=== PATIENT | male | born 2000 | race Caucasian/White ===

== ENCOUNTER → 2023-06-05 15:02 | Outpatient (BNVA) | payer MEDICAID, SELFPAY | PROVIDERS: PCP Nurse Practitioner Family; Referring Provider Nurse Practitioner Family; Visit Provider Nurse Practitioner Family | DX: L65.9 Nonscarring hair loss, unspecified (principal); L64.8 Other androgenic alopecia | CPT/HCPCS: 99203 ==

== ENCOUNTER → 2023-12-04 15:08 | Outpatient (BNVA) | payer MEDICAID, SELFPAY | PROVIDERS: PCP Nurse Practitioner Family; Visit Provider Nurse Practitioner Family | DX: L65.9 Nonscarring hair loss, unspecified (principal); L64.8 Other androgenic alopecia | CPT/HCPCS: 99213 ==